=== PATIENT | female | born 1950 | race Caucasian/White ===

== ENCOUNTER 2016-11-05 14:39 | Emergency (ER) | payer SELFPAY ==
[2016-11-05 15:38] LABS: BASOPHILS 0.3 % (0.0-2.0); EOSINOPHILS 3.2 % (0-7); HEMATOCRIT 40.7 % (42.0-54.0); HEMOGLOBIN 13.5 g/dL (13.5-17.5); IMMATURE GRANULOCYTES 0.2 % (0-5); LYMPHOCYTES 38.6 % (15-50); MCH 30.5 pg (26.0-34.0); MCHC 33.2 g/dL (31.0-37.0); MCV 92.1 fL (80.0-100.0); MEAN PLATELET VOLUME 9.4 fL (7.4-10.4); MONOCYTES 9.4 % (2-11); NEUTROPHILS 48.3 % (40-80); PLATELET COUNT 296 10x3/uL (130-400); RBC 4.42 10x6/uL (4.20-6.10); RDW 12.9 % (11.5-14.5); WBC 5.9 10x3/uL (4.8-10.8)
[2016-11-05 16:01] LABS: APPEARANCE CLEAR (CLEAR); BILIRUBIN NEGATIVE (NEGATIVE); COLOR YELLOW (YELLOW); GLUCOSE NEGATIVE (NEGATIVE); KETONE NEGATIVE (NEGATIVE); LEUKOCYTE ESTERASE 1+ (NEGATIVE); NITRITE NEGATIVE (NEGATIVE); PROTEIN NEGATIVE (NEGATIVE); UROBILINOGEN NORMAL (NORMAL)
[2016-11-05 16:02] LABS: BACTERIA MANY /hpf (NONE SEEN); RED CELLS - URINE 0-5 /hpf (0-5)
[2016-11-05 16:46] LABS: ALBUMIN 3.7 g/dL (3.4-5.0); ALKALINE PHOSPHATASE 67 U/L (46-116); ALT (SGPT) 31 U/L (10-68); CALC OSMOLALITY 275 mosm/kg (275-300); CARBON DIOXIDE 27.1 mmol/L (21.0-32.0); CHLORIDE - SERUM 100 mmol/L (98-107); CREATININE - SERUM 0.7 mg/dL (0.6-1.3); GLUCOSE 143 mg/dL (74-106); POTASSIUM - SERUM 4.2 mmol/L (3.5-5.1); SODIUM 137 mmol/L (136-145); UREA NITROGEN 13 mg/dL (7-18); eGFR NON AFRICAN AMERICAN > 90 mL/min (90-120)
[2016-11-05 16:50] LABS: AMYLASE - SERUM 36 U/L (25-115); LIPASE 173 U/L (73-393)
[2016-12-25 07:52] VITALS: BMI 37.1
== END 2016-11-05 20:30 | disposition left against medical advice (07) ==
LOC: EDSEX 14:39 → D.ER 14:39
PROVIDERS: Family Medicine
DX: R10.13 Epigastric pain (principal)

== ENCOUNTER 2016-11-06 09:17 | Emergency (ER) | payer OTHER ==
[2016-11-06 11:37] LABS: BASOPHILS 0.2 % (0.0-2.0); EOSINOPHILS 3.1 % (0-7); HEMATOCRIT 40.5 % (36.0-48.0); HEMOGLOBIN 13.5 g/dL (12-16); IMMATURE GRANULOCYTES 0.2 % (0-5); LYMPHOCYTES 33.2 % (15-50); MCH 30.8 pg (26.0-34.0); MCHC 33.3 g/dL (31.0-37.0); MCV 92.5 fL (80.0-100.0); MEAN PLATELET VOLUME 9.8 fL (7.4-10.4); NEUTROPHILS 53.3 % (40-80); PLATELET COUNT 293 10x3/uL (130-400); RBC 4.38 10x6/uL (4.00-5.40); RDW 12.9 % (11.5-14.5); WBC 5.5 10x3/uL (4.8-10.8)
[2016-11-06 11:49] LABS: ALBUMIN 3.7 g/dL (3.4-5.0); ALKALINE PHOSPHATASE 66 U/L (46-116); ALT (SGPT) 31 U/L (10-68); CALC OSMOLALITY 279 mosm/kg (275-300); CALCIUM 9.3 mg/dL (8.5-10.1); CHLORIDE - SERUM 99 mmol/L (98-107); CREATININE - SERUM 0.8 mg/dL (0.6-1.3); GLUCOSE 142 mg/dL (74-106); POTASSIUM - SERUM 4.4 mmol/L (3.5-5.1); PROTEIN - SERUM 7.1 g/dL (6.4-8.2); SODIUM 138 mmol/L (136-145); eGFR NON AFRICAN AMERICAN 76 mL/min (90-120)
[2016-11-06 11:50] LABS: AMYLASE - SERUM 33 U/L (25-115); LIPASE 170 U/L (73-393); UREA NITROGEN 18 mg/dL (7-18)
[2016-12-25 07:52] VITALS: BMI 37.1
== END 2016-11-06 12:31 | disposition home or self-care (01) ==
LOC: D.ER 09:17
PROVIDERS: Emergency Medicine
DX: R10.9 Unspecified abdominal pain (principal); E11.9 Type 2 diabetes mellitus without complications; I10 Essential (primary) hypertension; F17.200 Nicotine dependence, unspecified, uncomplicated

== ENCOUNTER → 2016-11-14 11:29 | Outpatient (CLI) | payer OTHER ==
[~2016-11-14 11:29] MED LIST: GLUCOPHAGE1000 MG PO; LIPITOR20 MG PO; LOSARTAN POTASS25 MG PO; OMEPRAZOLE40 MG PO; ULTRAM50 MG PO
[2016-12-25 07:52] VITALS: BMI 37.1
== END | disposition home or self-care (01) ==
LOC: D.NM 09:00
DX: R10.13 Epigastric pain (principal)

== ENCOUNTER → 2016-11-16 15:08 | Outpatient (CLI) | payer OTHER ==
[2016-12-25 07:52] VITALS: BMI 37.1
== END | disposition home or self-care (01) ==
LOC: D.CT 15:08
DX: R10.13 Epigastric pain (principal); R11.0 Nausea

== ENCOUNTER → 2016-11-21 08:46 | Outpatient (CLI) | payer OTHER ==
[2016-12-25 07:52] VITALS: BMI 37.1
== END | disposition home or self-care (01) ==
LOC: D.MRI 08:46
DX: R10.13 Epigastric pain (principal)

== ENCOUNTER → 2016-12-04 14:10 | Outpatient (CLI) | payer OTHER ==
[2016-12-06 08:22] LABS: CA 19-9 1290 U/mL (0-35)
[2016-12-07 07:24] LABS: IGG SUBCLASS 1 377 mg/dL (422-1292); IGG SUBCLASS 2 345 mg/dL (117-747); IGG SUBCLASS 3 45 mg/dL (41-129); IGG SUBCLASS 4 39 mg/dL (1-291)
[2016-12-25 07:52] VITALS: BMI 37.1
== END | disposition home or self-care (01) ==
LOC: D.RAD 08:00
PROVIDERS: Internal Medicine Gastroenterology
DX: D13.4 Benign neoplasm of liver (principal); R93.8 Abnormal findings on diagnostic imaging of other specified body structures

== ENCOUNTER → 2016-12-10 15:22 | Outpatient (CLI) | payer OTHER ==
[2016-12-10 16:35] LABS: ERYTHROCYTE SEDIMENTATION RATE 31 mm/hr (0-30)
[2016-12-11 08:20] LABS: CA 19-9 1446 U/mL (0-35)
[2016-12-12 07:26] LABS: IGG SUBCLASS 1 382 mg/dL (422-1292); IGG SUBCLASS 2 339 mg/dL (117-747); IGG SUBCLASS 3 50 mg/dL (41-129); IGG SUBCLASS 4 39 mg/dL (1-291)
[2016-12-25 07:52] VITALS: BMI 37.1
== END | disposition home or self-care (01) ==
LOC: D.LABREF 15:22
PROVIDERS: Internal Medicine Gastroenterology
DX: R10.13 Epigastric pain (principal); R63.4 Abnormal weight loss; K86.3 Pseudocyst of pancreas; R14.0 Abdominal distension (gaseous)

== ENCOUNTER → 2016-12-19 13:20 | Outpatient (CLI) | payer OTHER ==
[2016-12-25 07:52] VITALS: BMI 37.1
== END | disposition home or self-care (01) ==
LOC: D.LAB 12-13 15:30
DX: R74.8 Abnormal levels of other serum enzymes (principal)

== ENCOUNTER 2016-12-25 05:34 | Outpatient (CLI) | payer OTHER ==
[~2016-12-25] VITALS: Ht 154.9 cm; Wt 89.1 kg
[2016-12-25 07:26] LABS: BASOPHILS 0.6 % (0.0-2.0); EOSINOPHILS 3.7 % (0-7); HEMATOCRIT 36.9 % (36.0-48.0); HEMOGLOBIN 12.1 g/dL (12-16); LYMPHOCYTES 38.2 % (15-50); MCH 30.1 pg (26.0-34.0); MCHC 32.8 g/dL (31.0-37.0); MCV 91.8 fL (80.0-100.0); MEAN PLATELET VOLUME 9.6 fL (7.4-10.4); MONOCYTES 10.2 % (2-11); NEUTROPHILS 47.3 % (40-80); RBC 4.02 10x6/uL (4.00-5.40); RDW 13.2 % (11.5-14.5); WBC 4.6 10x3/uL (4.8-10.8)
[2016-12-25] MEDS ORDERED: GLUCOPHAGE1000 MG PO (07:43)
[2016-12-25] MEDS ORDERED: OMEPRAZOLE40 MG PO (07:43)
[2016-12-25] MEDS ORDERED: LOSARTAN POTASS25 MG PO (07:43)
[2016-12-25] MEDS ORDERED: ULTRAM50 MG PO (07:44)
[2016-12-25] MEDS ORDERED: LIPITOR20 MG PO (07:44)
[2016-12-25 07:45] LABS: CALC OSMOLALITY 284 mosm/kg (275-300); CHLORIDE - SERUM 102 mmol/L (98-107); CREATININE - SERUM 0.7 mg/dL (0.6-1.3); GLUCOSE 149 mg/dL (74-106); SODIUM 141 mmol/L (136-145); UREA NITROGEN 16 mg/dL (7-18); eGFR NON AFRICAN AMERICAN 89 mL/min (90-120)
[2016-12-25 07:52] VITALS: BP 128/66; Ht 154.9 cm; Wt 89.1 kg
[2016-12-25 07:52] LABS: APTT 26.4 SECONDS (22.8-39.4); INR 0.94 (0.85-1.17); PROTIME 12.4 SECONDS (11.6-15.0)
[2016-12-25 08:11] LABS: PLATELET COUNT 221 10x3/uL (130-400)
--- NOTE | 2016-12-25 17:10 | NUR ---
1000 TO RM AAAX 3 DRESSING TO LEFT FLANK AREA C/D/I NO BLEEDING NOTED SOFT TO TOUCH, 1200 UP TO BATHROOM VOIDED 1300 IV DC WITH CATHER TIP INTACT
--- NOTE | 2016-12-25 17:21 | NUR ---
1330 VS TAKEN AND CHARTED ON POST OP SHEET
== END 2016-12-25 13:30 | disposition home or self-care (01) ==
LOC: D.OPS 05:34 → D.RAD 08:00 → D.OPS 13:30
PROVIDERS: General Practice
DX: K86.3 Pseudocyst of pancreas (principal)

== ENCOUNTER → 2017-06-24 10:40 | Outpatient (CLI) | payer BC ==
[2016-12-25 07:52] VITALS: BMI 37.1
== END | disposition home or self-care (01) ==
LOC: D.US 10:40
DX: C25.2 Malignant neoplasm of tail of pancreas (principal)

== ENCOUNTER → 2017-09-04 13:02 | Outpatient (CLI) | payer MEDICARE, OTHER ==
[2016-12-25 07:52] VITALS: BMI 37.1
== END | disposition home or self-care (01) ==
LOC: D.CT 13:00
DX: C25.2 Malignant neoplasm of tail of pancreas (principal)

== ENCOUNTER → 2017-09-24 18:19 | Outpatient (CLI) | payer MEDICARE, OTHER ==
[2016-12-25 07:52] VITALS: BMI 37.1
== END | disposition home or self-care (01) ==
LOC: D.MAMMO 11:15
DX: Z12.31 Encounter for screening mammogram for malignant neoplasm of breast (principal)

== ENCOUNTER 2017-12-20 06:42 | Day surgery (SDC) | payer MEDICARE, OTHER ==
--- NOTE | ~2017-12-20 | OP ---
PATIENT NAME: GENNA ESCOBAR MEDICAL RECORD: [id number] :54 LOCATION:D.OPS ADMISSION DATE: SURGEON: ASTER SMALLWOOD MD DATE OF OPERATION: 12/20/2017 PREOPERATIVE DIAGNOSES: 1. Pancreatic cancer. 2. Gastroesophageal reflux disease. 3. Diabetes mellitus. POSTOPERATIVE DIAGNOSES: 1. Pancreatic cancer. 2. Gastroesophageal reflux disease. 3. Diabetes mellitus. PROCEDURE: 1. Left subclavian vein port placement. 2. Fluoroscopic interpretation. SURGEON: Aster Smallwood MD REPORT OF PROCEDURE: The patient's left chest was prepped and draped in sterile fashion. A needle was used to cannulate the left subclavian vein. The guidewire was advanced with ease. Fluoro was used to note that the wire was in good position in the venous system. A skin incision was made on the left superior lateral chest and a subcutaneous pouch was formed. The catheter was tunneled between this pouch and the wire exit site. The port was then sutured to the pectoral fascia using interrupted 2-0 Prolenes times 2. The catheter was cut with a beveled tip. The dilator trocar device was placed over the wire and the wire and dilator were removed. The catheter was advanced through the trocar and the trocar was removed with ease. At this point, fluoroscopy was used to note that the catheter tip was resting in good position at the right atrial superior vena caval junction. The catheter aspirated nonpulsatile dark blood and flushed easily with heparinized saline. The subcutaneous tissues were then reapproximated with interrupted 3-0 Vicryls and the skin was closed with running subcutaneous 5-0 Monocryl. COMPLICATIONS: None. CONDITION: Stable. ANESTHESIA: General endotracheal. BLOOD LOSS: Minimal. TRANSINT:[id number] Voice Confirmation ID: [id number] DOCUMENT ID: [id number] OPERATIVE REPORT [id number] SHAWNASTER WHITT MD at 1319 CC: [id number] DICTATION DATE: 01/02/18 1520 PULP OPERATOR: 01/02/18 1538 [facility] 12/20/[address] [address]
[~2017-12-20 06:42] MED LIST changes: +LOVENOX120 MG/0.8 SC
[2017-12-20] MEDS ORDERED: OXYCODONE HCL5 MG PO (07:48)
[2017-12-20 07:53] LABS: BASOPHILS 0.3 % (0-2); EOSINOPHILS 1.8 % (0-7); HEMATOCRIT 35.8 % (36.0-48.0); HEMOGLOBIN 11.4 g/dL (12-16); IMMATURE GRANULOCYTES 0.2 % (0-5); LYMPHOCYTES 19.9 % (15-50); MCH 28.9 pg (26.0-34.0); MCHC 31.8 g/dL (31.0-37.0); MCV 90.9 fL (80.0-100.0); MEAN PLATELET VOLUME 9.8 fL (7.4-10.4); MONOCYTES 12.2 % (2-11); NEUTROPHILS 65.6 % (40-80); PLATELET COUNT 304 10x3/uL (130-400); RBC 3.94 10x6/uL (4.00-5.40); RDW 15.9 % (11.5-14.5)
[2017-12-20 07:55] VITALS: BP 108/73; BMI 35.2
[2017-12-20 08:01] LABS: CALC OSMOLALITY 282 mosm/kg (275-300); CALCIUM 8.3 mg/dL (8.5-10.1); CARBON DIOXIDE 28.3 mmol/L (21.0-32.0); CHLORIDE - SERUM 102 mmol/L (98-107); CREATININE - SERUM 0.6 mg/dL (0.6-1.3); GLUCOSE 162 mg/dL (74-106); POTASSIUM - SERUM 3.8 mmol/L (3.5-5.1); SODIUM 139 mmol/L (136-145); UREA NITROGEN 14 mg/dL (7-18); eGFR NON AFRICAN AMERICAN > 90 mL/min (90-120)
[2017-12-20 08:20] LABS: APTT 27.7 SECONDS (22.8-39.4); INR 0.95 (0.85-1.17); PROTIME 12.3 SECONDS (11.6-15.0)
== END 2017-12-20 12:10 | disposition home or self-care (01) ==
LOC: D.OPS 06:42 → D.PAN 13:00
PROVIDERS: Anesthesiology
DX: C25.9 Malignant neoplasm of pancreas, unspecified (principal); K21.9 Gastro-esophageal reflux disease without esophagitis; E11.9 Type 2 diabetes mellitus without complications; Z01.812 Encounter for preprocedural laboratory examination

== ENCOUNTER → 2018-01-07 10:01 | Outpatient (CLI) | payer MEDICARE, OTHER ==
[2017-12-20 07:55] VITALS: BMI 35.2
[~2018-01-07 10:01] MED LIST changes: +OXYCODONE HCL5 MG PO
[2018-01-07 11:04] LABS: CREATININE - SERUM 0.9 mg/dL (0.6-1.3)
== END | disposition home or self-care (01) ==
LOC: D.CT 01-06 10:30
PROVIDERS: Internal Medicine Hematology & Oncology
DX: C25.2 Malignant neoplasm of tail of pancreas (principal)

== ENCOUNTER → 2018-01-14 08:14 | Outpatient (CLI) | payer MEDICARE, OTHER ==
[2017-12-20 07:55] VITALS: BMI 35.2
== END | disposition home or self-care (01) ==
LOC: D.CT 08:14
DX: C25.2 Malignant neoplasm of tail of pancreas (principal)

== ENCOUNTER 2018-09-01 21:50 | Inpatient (IN) | payer MEDICARE, OTHER ==
[~2018-09-01] VITALS: Ht 154.9 cm; Wt 73.5 kg
--- NOTE | ~2018-09-01 | MORECARE ---
CASE MANAGEMENT DISCHARGE SUMMARY PATIENT: GENNA ESCOBAR UNIT: [id number] ADM DATE: 09/01/18 AGE: 68 : 54 SEX: F ROOM/BED: D.2211 AUTHOR: YARY VALLE PHYSICIAN: REFERRING PHYSICIAN: MATTHEW JUDGE MD DATE OF SERVICE: 09/05/18 Discharge Plan Patient Name: GENNA ESCOBAR Facility: [facility]:[place] : 1950 Planned Disposition: Home Anticipated Discharge Date: Discharge Date: Expected LOS: Initial Reviewer: [email or web address] Initial Review Date: 09/01/2018 Generated: 09/05/18 9:12 am Comments DCP- Discharge Planning Updated by [email or web address]: Cathi Valdivia on 09/05/18 7:[address] Patient Name: GENNA ESCOBAR Encounter No: [id number] : 1950 Primary Insurance: MEDICARE A & B Anticipated DC Date: Planned Disposition: Home External Planned Provider: : DCP follow-up note: Patient and family in agreement with discharge plan. IMM served and explained. Patient refuses home health at this point and says her will be the one to take her home today. No changes to plan. Case management will follow and assist as needed. Cathi Valdivia DCP- Discharge Planning Updated by [email or web address]: Cathi Valdivia on 09/03/18 10:[address] Patient Name: GENNA ESCOBAR Admission Status: Elective Accout number: [id number] Admission Date: 09-01-2018 : 1950 Admission Diagnosis: Attending: MATTHEW JUDGE Current LOS: 2 Anticipated DC Date: Planned Disposition: Home Primary Insurance: MEDICARE A & B Discharge Planning Comments: CM met with patient to assess discharge planning needs. Patient lives with her where she is independent with her care at this time. She stated that she has 3 neighbors who can help her when she needs it. Her will be the one to take her home at discharge. She denies any DME or HH services at this time and does not think she needs anything at this point. She states her home is safe and there are no steps or stairs to enter her home. CM will continue to follow and assist with dc planning as needed General Accounting Manager: Cathi Valdivia DCPIA - Discharge Planning Initial Assessment Updated by [email or web address]: Cathi Valdivia on 09/03/18 11:22 am * Is the patient Alert and Oriented? Yes * How many steps to enter\exit or inside your home? * PCP RICHARD ZIMMERMAN * Pharmacy [facility] * Preadmission Environment Home with Family * ADLs Independent * Equipment None * List name and contact numbers for known caregivers / representatives who currently or will assist patient after discharge: ANGELO ESCOBAR ([phone]) * Verbal permission to speak to the caregivers and representatives has been obtained from the patient. N/A * Community resources currently utilized None * Additional services required to return to the preadmission environment? No * Can the patient safely return to the preadmission environment? Yes * Has this patient been hospitalized within the prior 30 days at any hospital? Yes Coverage Notice Reviewer: [id number] - Cathi Valdivia Notice Issued Date-Time: 09/05/2018 8:00 Notice Type: IM Discharge Notice Notice Delivered To: Patient Relationship to Patient: Statistician Name: Delivery Method: HAND - Hand Delivered Lashanda Days: Prior Verbal Notification: Recipient Understood Notice: Yes Recipient Signature: Yes Med Rec Note Co-signed by Attending: Coverage Notice Comment: Last DP export: 09/03/18 10:27 a Patient Name: GENNA ESCOBAR Page [id number] at 0812 All edits/amendments must be made on the electronic document DICTATION DATE: 09/05/18810 WARP SPLITTER: JODI 09/05/18810 RPT#: [id number] DC DATE: STATUS: ADM IN [facility] [address] [place] [address] END OF REPORT
--- NOTE | ~2018-09-01 | OP ---
PATIENT NAME: GENNA ESCOBAR MEDICAL RECORD: [id number] :54 LOCATION:D.MS Daniel221Sh[facility]ram ADMISSION DATE:09/01/18 SURGEON: LIU ZUÑIGA MD DATE OF OPERATION: 09/02/2018 PREOPERATIVE DIAGNOSES: 1. Pancreatic cancer. 2. History of radiation to the pancreatic cancer. 3. Acute blood loss anemia, requiring transfusions. POSTOPERATIVE DIAGNOSES: 1. Pancreatic cancer. 2. History of radiation to the pancreatic cancer. 3. Acute blood loss anemia, requiring transfusions. 4. Multiple bleeding gastric ulcers involving the posterior antrum. I am uncertain whether there is actually a bleeding tumor that has eroded into the stomach or not. I really could not tell. PROCEDURES: 1. Esophagogastroduodenoscopy with treatment of bleeding areas with the argon plasma care attendant utilizing the esophageal setting in the forced mode. 2. Submucosal epinephrine injection to help control bleeding. 3. Placement of 3 endoscopic clips for hemorrhage control as well. SURGEON: Liu Zuñiga MD SLIP BRIDGE OPERATOR: None. ESTIMATED BLOOD LOSS: 25 cc. ANESTHESIA: General. COMPLICATIONS: None. The risks, possible complications, and alternatives to the procedure were explained to the patient. She elects to proceed. ENDOSCOPIC COURSE: The patient was conveyed to the endoscopy suite electively on 09/02/2018. IV sedation was induced by the anesthesia staff. A bite block was inserted. A gastroscope was inserted through the mouth. It was advanced easily into the hypopharynx. The esophagus was easily intubated as were stomach and duodenum. Upon withdrawal, retroflexed and angulus views were obtained. There was active bleeding from the ulcers. Utilizing the argon plasma care attendant with the esophageal setting in the forced mode, I cauterized both the bleeding ulcers and the nonbleeding ulcers with the argon plasma care attendant. There was about 90% cessation of the bleeding utilizing argon plasma care attendant. I then advanced a sclerotherapy needle. At 4 points around the bleeding areas, I injected epinephrine submucosally. For additional hemorrhage control, 3 endoscopic clips were placed. There was no further bleeding. The endoscope was then withdrawn under direct vision. The patient was then conveyed back to her room. There was no bleeding going on right now; however, I think that there is a likelihood the patient will develop OPERATIVE REPORT [id number] GENNA ESCOBAR bleeding again. TRANSINT:[id number] Voice Confirmation ID: [id number] DOCUMENT ID: [id number] LIU ZUÑIGA MD at 1603 CC: RICHARD ZIMMERMAN MD, MATTHEW JUDGE MD and CEE JUAN MD [id number] DICTATION DATE: 09/02/18 1143 CLINICAL NURSE: 09/02/18 1743 ADM IN [facility] [address] [place] [id number]
--- NOTE | ~2018-09-01 | MORECARE ---
CASE MANAGEMENT DISCHARGE SUMMARY PATIENT: GENNA ESCOBAR UNIT: [id number] ADM DATE: 09/01/18 AGE: 68 : 54 SEX: F ROOM/BED: D.2211 AUTHOR: YARY VALLE PHYSICIAN: REFERRING PHYSICIAN: MATTHEW JUDGE MD DATE OF SERVICE: 09/08/18 Discharge Plan Patient Name: GENNA ESCOBAR Facility: [facility]:[place] : 1950 Planned Disposition: Home Anticipated Discharge Date: Discharge Date: 09/05/2018 Expected LOS: 0 Initial Reviewer: [email or web address] Initial Review Date: 09/01/2018 Generated: 09/08/18 10:35 am Comments DCP- Discharge Planning Updated by [email or web address]: Cathi Valdivia on 09/05/18 7:[address] Patient Name: GENNA ESCOBAR Encounter No: [id number] : 1950 Primary Insurance: MEDICARE A & B Anticipated DC Date: Planned Disposition: Home External Planned Provider: : DCP follow-up note: Patient and family in agreement with discharge plan. IMM served and explained. Patient refuses home health at this point and says her will be the one to take her home today. No changes to plan. Case management will follow and assist as needed. Cathi Valdivia DCP- Discharge Planning Updated by [email or web address]: Cathi Valdivia on 09/03/18 10:[address] Patient Name: GENNA ESCOBAR Admission Status: Elective Accout number: [id number] Admission Date: 09-01-2018 : 1950 Admission Diagnosis: Attending: MATTHEW JUDGE Current LOS: 2 Anticipated DC Date: Planned Disposition: Home Primary Insurance: MEDICARE A & B Discharge Planning Comments: CM met with patient to assess discharge planning needs. Patient lives with her where she is independent with her care at this time. She stated that she has 3 neighbors who can help her when she needs it. Her will be the one to take her home at discharge. She denies any DME or HH services at this time and does not think she needs anything at this point. She states her home is safe and there are no steps or stairs to enter her home. CM will continue to follow and assist with dc planning as needed Science Editor: Cathi Valdivia DCPIA - Discharge Planning Initial Assessment Updated by [email or web address]: Cathi Valdivia on 09/03/18 11:22 am * Is the patient Alert and Oriented? Yes * How many steps to enter\exit or inside your home? * PCP RICHARD ZIMMERMAN * Pharmacy [facility] * Preadmission Environment Home with Family * ADLs Independent * Equipment None * List name and contact numbers for known caregivers / representatives who currently or will assist patient after discharge: ANGELO ESCOBAR ([phone]) * Verbal permission to speak to the caregivers and representatives has been obtained from the patient. N/A * Community resources currently utilized None * Additional services required to return to the preadmission environment? No * Can the patient safely return to the preadmission environment? Yes * Has this patient been hospitalized within the prior 30 days at any hospital? Yes Coverage Notice Reviewer: [id number] - Cathi Valdivia Notice Issued Date-Time: 09/05/2018 8:00 Notice Type: IM Discharge Notice Notice Delivered To: Patient Relationship to Patient: Certified Credit Counselor Name: Delivery Method: HAND - Hand Delivered Lashanda Days: Prior Verbal Notification: Recipient Understood Notice: Yes Recipient Signature: Yes Med Rec Note Co-signed by Attending: Coverage Notice Comment: Last DP export: 09/05/18 7:12 a Patient Name: GENNA ESCOBAR Page 75990 at 0935 All edits/amendments must be made on the electronic document DICTATION DATE: 09/08/18933 RECONCILIATION ANALYST: JODI 09/08/18933 RPT#: [id number] DC DATE:09/05/18 STATUS: DIS IN [facility] [address] [place] [address] END OF REPORT
--- NOTE | ~2018-09-01 | MORECARE ---
CASE MANAGEMENT DISCHARGE SUMMARY PATIENT: GENNA ESCOBAR UNIT: [id number] ADM DATE: 09/01/18 AGE: 68 : 54 SEX: F ROOM/BED: D.2211 AUTHOR: YARY VALLE PHYSICIAN: REFERRING PHYSICIAN: MATTHEW JUDGE MD DATE OF SERVICE: 09/03/18 Discharge Plan Patient Name: EGNNA ESCOBAR Facility: [facility]:[place] : 1950 Planned Disposition: Home Anticipated Discharge Date: Discharge Date: Expected LOS: Initial Reviewer: [email or web address] Initial Review Date: 09/01/2018 Generated: 09/03/18 12:27 pm Comments DCP- Discharge Planning Updated by [email or web address]: Cathi Valdivia on 09/03/18 10:[address] Patient Name: GENNA ESCOBAR Admission Status: Elective Accout number: [id number] Admission Date: 09-01-2018 : 1950 Admission Diagnosis: Attending: MATTHEW JUDGE Current LOS: 2 Anticipated DC Date: Planned Disposition: Home Primary Insurance: MEDICARE A & B Discharge Planning Comments: CM met with patient to assess discharge planning needs. Patient lives with her where she is independent with her care at this time. She stated that she has 3 neighbors who can help her when she needs it. Her will be the one to take her home at discharge. She denies any DME or HH services at this time and does not think she needs anything at this point. She states her home is safe and there are no steps or stairs to enter her home. CM will continue to follow and assist with dc planning as needed Auto Body Service Mechanic: Cathi Valdivia DCPIA - Discharge Planning Initial Assessment Updated by [email or web address]: Cathi Valdivia on 09/03/18 11:22 am * Is the patient Alert and Oriented? Yes * How many steps to enter\exit or inside your home? * PCP RICHARD ZIMMERMAN * Pharmacy [facility] * Preadmission Environment Home with Family * ADLs Independent * Equipment None * List name and contact numbers for known caregivers / representatives who currently or will assist patient after discharge: ANGELO ESCOBAR ([phone]) * Verbal permission to speak to the caregivers and representatives has been obtained from the patient. N/A * Community resources currently utilized None * Additional services required to return to the preadmission environment? No * Can the patient safely return to the preadmission environment? Yes * Has this patient been hospitalized within the prior 30 days at any hospital? Yes Patient Name: GENNA ESCOBAR Page [phone] at 1127 All edits/amendments must be made on the electronic document DICTATION DATE: 09/03/181125 SECURITY SERGEANT: JODI 09/03/181125 RPT#: [id number] DC DATE: STATUS: ADM IN [facility] [address] [place] [address] END OF REPORT
[2018-09-01] MEDS ORDERED: PROTONIX40 MG PO (22:55)
[2018-09-01] MEDS ORDERED: OXYCONTIN10 MG PO (23:01)
[2018-09-01] MEDS ORDERED: MORPHINE 44 MG/1 M1 IV (23:02)
[2018-09-01] MEDS ORDERED: OXYCODONE HCL5 M1 PO (23:05)
[2018-09-01] MEDS ORDERED: CARAFATE1 G PO (23:06)
[2018-09-01] MEDS ORDERED: SODIUM CL 0.91000 ML (23:08)
[2018-09-02] VITALS: BP 163/80
[2018-09-02 01:24] VITALS: BP 163/80; BMI 30.6
[2018-09-02 04:00] VITALS: BP 123/59
[2018-09-02 08:06] LABS: HEMATOCRIT 25.6 % (36.0-48.0); HEMOGLOBIN 8.1 g/dL (12-16); MCH 30.1 pg (26.0-34.0); MCHC 31.6 g/dL (31.0-37.0); MCV 95.2 fL (80.0-100.0); MEAN PLATELET VOLUME 9.9 fL (7.4-10.4); RBC 2.69 10x6/uL (4.00-5.40); RDW 18.4 % (11.5-14.5); WBC 2.1 10x3/uL (4.8-10.8)
[2018-09-02 08:11] LABS: PLATELET COUNT 113 10x3/uL (130-400)
[2018-09-02 08:16] LABS: ALBUMIN 1.9 g/dL (3.4-5.0); ALKALINE PHOSPHATASE 102 U/L (46-116); ALT (SGPT) 20 U/L (10-68); BILIRUBIN - TOTAL 0.27 mg/dL (0.2-1.3); CALC OSMOLALITY 284 mosm/kg (275-300); CALCIUM 7.6 mg/dL (8.5-10.1); CARBON DIOXIDE 29.8 mmol/L (21.0-32.0); CHLORIDE - SERUM 108 mmol/L (98-107); CREATININE - SERUM 0.5 mg/dL (0.6-1.3); POTASSIUM - SERUM 3.4 mmol/L (3.5-5.1); PROTEIN - SERUM 4.9 g/dL (6.4-8.2); SODIUM 144 mmol/L (136-145); UREA NITROGEN 8 mg/dL (7-18); eGFR NON AFRICAN AMERICAN > 90 mL/min (90-120)
[2018-09-02 08:17] LABS: GLUCOSE 91 mg/dL (74-106)
[2018-09-02 08:24] LABS: INR 1.11 (0.85-1.17); PROTIME 13.9 SECONDS (11.6-15.0)
[2018-09-02 08:30] VITALS: BP 112/64
[2018-09-02 08:36] LABS: EOSINOPHILS 2 % (0-7); LYMPHOCYTES 18 % (15-50); MONOCYTES 6 % (2-11); NEUTROPHILS 74 % (40-80); PLATELET ESTIMATE DECREASED; PLATELET MORPHOLOGY NORMAL PLT MORPH
[2018-09-02 12:21] VITALS: Ht 154.9 cm; Wt 73.5 kg
[2018-09-02 12:45] VITALS: BP 144/72
[2018-09-02 20:41] VITALS: BP 162/88
[2018-09-03 04:52] VITALS: BP 150/85
[2018-09-03 08:58] LABS: BASOPHILS 0.2 % (0-2); EOSINOPHILS 0.2 % (0-7); IMMATURE GRANULOCYTES 0.2 % (0-5); LYMPHOCYTES 11.2 % (15-50); MCH 30.4 pg (26.0-34.0); MEAN PLATELET VOLUME 10.1 fL (7.4-10.4); MONOCYTES 18.4 % (2-11); NEUTROPHILS 69.8 % (40-80); PLATELET COUNT 123 10x3/uL (130-400)
[2018-09-03 09:00] LABS: HEMATOCRIT 32.4 % (36.0-48.0); HEMOGLOBIN 10.7 g/dL (12-16); RBC 3.52 10x6/uL (4.00-5.40)
[2018-09-03 09:05] LABS: ALKALINE PHOSPHATASE 109 U/L (46-116); ALT (SGPT) 18 U/L (10-68); BILIRUBIN - TOTAL 0.53 mg/dL (0.2-1.3); CALC OSMOLALITY 277 mosm/kg (275-300); CALCIUM 7.8 mg/dL (8.5-10.1); CARBON DIOXIDE 27.7 mmol/L (21.0-32.0); CHLORIDE - SERUM 104 mmol/L (98-107); CREATININE - SERUM 0.5 mg/dL (0.6-1.3); GLUCOSE 119 mg/dL (74-106); POTASSIUM - SERUM 3.7 mmol/L (3.5-5.1); PROTEIN - SERUM 5.3 g/dL (6.4-8.2); SODIUM 140 mmol/L (136-145); UREA NITROGEN 7 mg/dL (7-18); eGFR NON AFRICAN AMERICAN > 90 mL/min (90-120)
[2018-09-03 09:06] VITALS: BP 153/77
[2018-09-03 13:14] VITALS: BP 119/62
[2018-09-03 16:35] VITALS: BP 134/65
[2018-09-03 21:32] VITALS: BP 110/51
[2018-09-04 05:19] VITALS: BP 115/63
[2018-09-04 07:19] LABS: HEMATOCRIT 30.4 % (36.0-48.0); HEMOGLOBIN 9.8 g/dL (12-16); MCH 30.1 pg (26.0-34.0); MCHC 32.2 g/dL (31.0-37.0); MCV 93.3 fL (80.0-100.0); MEAN PLATELET VOLUME 10.3 fL (7.4-10.4); PLATELET COUNT 136 10x3/uL (130-400); RBC 3.26 10x6/uL (4.00-5.40); WBC 3.4 10x3/uL (4.8-10.8)
[2018-09-04 07:38] LABS: ALBUMIN 1.8 g/dL (3.4-5.0); ALKALINE PHOSPHATASE 97 U/L (46-116); ALT (SGPT) 14 U/L (10-68); BILIRUBIN - TOTAL 0.41 mg/dL (0.2-1.3); CALC OSMOLALITY 277 mosm/kg (275-300); CALCIUM 7.8 mg/dL (8.5-10.1); CARBON DIOXIDE 30.7 mmol/L (21.0-32.0); CHLORIDE - SERUM 105 mmol/L (98-107); CREATININE - SERUM 0.5 mg/dL (0.6-1.3); GLUCOSE 111 mg/dL (74-106); POTASSIUM - SERUM 3.3 mmol/L (3.5-5.1); SODIUM 140 mmol/L (136-145); UREA NITROGEN 7 mg/dL (7-18); eGFR NON AFRICAN AMERICAN > 90 mL/min (90-120)
[2018-09-04 08:30] VITALS: BP 118/59
[2018-09-04 08:33] LABS: LYMPHOCYTES 27 % (15-50); MONOCYTES 18 % (2-11); NEUTROPHILS 55 % (40-80); PLATELET ESTIMATE NORMAL
[2018-09-04 08:34] LABS: ANISOCYTOSIS OCC; HYPOCHROMASIA OCC
[2018-09-04 12:45] VITALS: BP 118/65
[2018-09-04 17:06] VITALS: BP 138/64
[2018-09-04 19:47] VITALS: BP 110/54
[2018-09-05 04:56] VITALS: BP 124/67
[2018-09-05 06:50] LABS: HEMATOCRIT 30.9 % (36.0-48.0); HEMOGLOBIN 9.9 g/dL (12-16); MCH 30.2 pg (26.0-34.0); MCV 94.2 fL (80.0-100.0); PLATELET COUNT 132 10x3/uL (130-400); RBC 3.28 10x6/uL (4.00-5.40); RDW 17.9 % (11.5-14.5); WBC 3.7 10x3/uL (4.8-10.8)
[2018-09-05 07:17] LABS: ALBUMIN 1.9 g/dL (3.4-5.0); ALKALINE PHOSPHATASE 102 U/L (46-116); ALT (SGPT) 13 U/L (10-68); BILIRUBIN - TOTAL 0.37 mg/dL (0.2-1.3); CALC OSMOLALITY 279 mosm/kg (275-300); CALCIUM 7.7 mg/dL (8.5-10.1); CARBON DIOXIDE 29.7 mmol/L (21.0-32.0); CHLORIDE - SERUM 107 mmol/L (98-107); CREATININE - SERUM 0.6 mg/dL (0.6-1.3); GLUCOSE 120 mg/dL (74-106); POTASSIUM - SERUM 3.4 mmol/L (3.5-5.1); PROTEIN - SERUM 5.2 g/dL (6.4-8.2); SODIUM 141 mmol/L (136-145); UREA NITROGEN 8 mg/dL (7-18); eGFR NON AFRICAN AMERICAN > 90 mL/min (90-120)
[2018-09-05 07:18] LABS: PLATELET ESTIMATE DECREASED; PLATELET MORPHOLOGY NORMAL PLT MORPH
[2018-09-05 08:25] VITALS: BP 124/70
[2018-09-05 12:50] VITALS: BP 132/68
== END 2018-09-05 13:58 | disposition home or self-care (01) | DRG 378 ==
LOC: D.MS 21:50
PROVIDERS: Internal Medicine Hematology & Oncology; Surgery
PROC: 3E0G8GC Introduction of Other Therapeutic Substance into Upper GI, Via Natural or Artificial Opening Endoscopic (ICD-10-PCS; 2018-09-02)
PROC: 0W3P8ZZ Control Bleeding in Gastrointestinal Tract, Via Natural or Artificial Opening Endoscopic (ICD-10-PCS; principal; 2018-09-02 12:00)
DX: K25.4 Chronic or unspecified gastric ulcer with hemorrhage (principal); D62 Acute posthemorrhagic anemia; C25.9 Malignant neoplasm of pancreas, unspecified; C79.9 Secondary malignant neoplasm of unspecified site; E11.9 Type 2 diabetes mellitus without complications; I10 Essential (primary) hypertension; F41.9 Anxiety disorder, unspecified; D69.6 Thrombocytopenia, unspecified